=== PATIENT | female | born 1985 | race Caucasian/White ===

== ENCOUNTER 2023-04-15 06:49 | Emergency (ER) | payer OTHER, SELFPAY ==
[2023-04-15 06:52] VITALS: BP 206/93; PULSE 88; RESP 18; TEMP 36.7; O2SAT 98; BMI 37.6
--- NOTE | 2023-04-15 07:27 | ED.GENADULT ---
HPI - General Adult General Chief complaint: General Medical Stated complaint: l sided facial numbness pain Time Seen by Provider: 04/15/23 07:02 Source: patient Mode of arrival: ambulatory Limitations: no limitations History of Present Illness HPI narrative: 37 yo female with PMH of back pain here with c/o 1. L sided facial pain, swelling, sharp shooting pains and pain in left cheek. Hurts to open mouth. no trauma, travel, dental procedure. 2. LMP end of February had her IUD removed has had 4 tests at home. She has tried tylenol and OTC orajel, ear drops and cannot tolerate the pain it is making her blood pressure high. She has not seen OBGYN as she has had recent miscarriage and doesn't know want to go unless this one holds. NO OB complaints MD complaint: L facial pain Onset (ago): day(s) (Saturday) Radiation: non-radiation Severity: severe Quality: stabbing and aching Pain Consistency: intermittent Relieving factors: none Exacerbating factors: other (chewing) Associated symptoms: denies other symptoms Treatments prior to arrival: none Related Data Previous Rx's Medication Instructions Recorded amoxicillin 500 mg capsule 500 mg PO TID 7 days #21 caps 04/15/23 hydrocodone 5 mg-acetaminophen 325 1 tab PO Q6H PRN pain #14 tabs 04/15/23 mg tablet Allergies Allergy/AdvReac Type Severity Reaction Status Date / Time vancomycin AdvReac Redness of Verified 04/15/23 06:52 Skin Review of Systems Review of Systems: Constitutional : No Fever, No Chills, No Fatigue ENT/Mouth : No sore throat, No Rhinorrhea, pos facial pain, pos ear pain Eyes: No Eye Pain, No Swelling, No Redness Cardiovascular : No Chest Pain, No SOB, No Dyspnea on Exertion Respiratory : No Cough, No Sputum Gastrointestinal : No Nausea, No Vomiting, No Diarrhea, No abdominal Pain Genitourinary : No Dysuria, No Urinary Frequency, No Hematuria, Musculoskeletal : No joint pain, No Myalgias, No Joint Swelling Skin : No Skin Lesions, No rash Neuro : No Weakness, No Numbness, No Dizziness, no Headache Psych : No Anxiety/Panic, No Depression All other systems reviewed and are negative [facility] Past Medical History Attestation statement: The following information was validated with the patient. Medical History (Updated 04/15/23 @ 07:50 by Desire Montoya DO) Miscarriage Back pain Social History Social History (Updated 04/15/23 @ 07:41 by Desire Montoya DO) Patient Tobacco Use Status: Never used Tobacco Smoked in Last 30 Days: No Use of substances other than those prescribed or required for medical reasons: No Advance Directives: No Advance Directives Information Provided: No Patient : Yes Physical Exam ED Vital Signs: Vital Signs - 24 hr 04/15/23 06:52 04/15/23 07:35 Temperature 98.0 F 98.3 F Pulse Rate 88 92 Respiratory Rate 18 16 Blood Pressure 206/93 H 152/98 H Pulse Oximetry 98 97 Oxygen Delivery Method Room Air Room Air BMI result Body Mass Index 37.6 Appearance: Alert. Oriented X3. No acute distress. Eyes: Pupils equal, round and reactive to light. EOMi no bulging no pain ENT: Pharynx normal. Teeth normal no abscess on gingiva, no trismus, L parotid gland mildly swollen and ttp no purulence noted/no mass or stone felt, L TM normal, no mastoid ttp Neck: Normal inspection. Neck supple. normal no submandibular swelling CVS: Normal heart rate and rhythm. Pulses normal. Respiratory: No respiratory distress. Breath sounds normal. Abdomen: Soft and nontender. Skin: Skin warm and dry. Normal skin color. Normal skin turgor. Extremities: No lower extremity edema. No calf ttp Neuro: Oriented X 3. No motor deficit. No sensory deficit. Medications Administered Discontinued Medications Generic Name Dose Route Start Last Admin Trade Name Freq PRN Reason Stop Dose Admin Amoxicillin 500 mg 04/15/23 07:17 04/15/23 07:34 Amoxicillin 500 Mg Capsule PO 04/15/23 07:18 500 mg ONCE ONE Administration Oxycodone HCl 5 mg 04/15/23 07:17 04/15/23 07:33 Oxycodone Hcl Immed Release 5 Mg Tablet PO 04/15/23 07:18 5 mg ONCE ONE Administration Medical Decision Making Medical Decision Making MDM Narrative: 37 yo female with PMH of back pain here with sharp shooting pains on L side of face without any other neurologic findings or deficits - she has normal L TM and mastoid she has no sublingual or submandibular swelling. She has signs of inflammed parotid gland but no purulence expressed and no sig swelling or overlying cellulitis, neck exam is normal. At this time could be trigeminal neuralgia no hx of this and no risk factors and possibly sialoadenitis - will start on amoxicillin and short course pain medications. could also be worsening [place]. She will get labs, UA and HCG - BP is elevated likely due to pain. Not in pre-eclampsia window based off LMP is 5 to 7 weeks Differential Diagnosis Differential Diagnoses: The differential diagnosis associated with the presentation includes TMJ syndrome, trigeminal neuralgia, parotitis, AOM Admission/Observation Consideration of admission/observation: Escalation of care including admission/observation considered Lab Data [facility] Lab Attestation statement: I reviewed the patient's lab results. 04/15/23 08:19 04/15/23 08:19 Labs: Lab Results 04/15/23 04/15/23 Range/Units 07:36 08:19 WBC 5.9 (4.8-10.8) X10*3/uL RBC 4.26 (4.20-5.50) X10*6/uL Hgb 10.2 L (12.0-16.0) g/dl Hct 32.2 L (37.0-47.0) % MCV 75.6 L (80.0-98.0) fL MCH 23.9 L (27.0-33.0) pg MCHC 31.7 (31.0-35.0) g/dl RDW 15.8 (11.0-16.0) % Plt Count 275 (160-400) X10*3/uL MPV 9.3 L (9.4-12.3) fL Immature Gran % (Auto) 0.3 (0.0-0.4) % Neut % (Auto) 65.2 (45-73) % Lymph % (Auto) 27.1 (20-40) % [place] % (Auto) 5.5 (2-11) % Eos % (Auto) 1.7 (0-4) % Baso % (Auto) 0.2 (0-2) % Lymph # (Auto) 1.6 (1.2-4.9) X10*3/uL [place] # (Auto) 0.3 (0.1-1.2) X10*3/uL Eos # (Auto) 0.1 (0.0-0.4) X10*3/uL Baso # (Auto) 0.0 (0.0-0.2) X10*3/uL Abs Immat Gran (auto) 0.02 (0.00-0.03) X10*3/uL Absolute Neuts (auto) 3.8 (2.0-8.3) x10*3/uL Absolute Nucleated RBC 0.000 (0.0-0.012) X10*3/uL Nucleated RBC % (auto) 0.0 (0.0-0.2) /100WBC Sodium 141 (135-145) mmol/L Potassium 3.7 (3.3-5.1) mmol/L Chloride 110 H (96-108) mmol/L Carbon Dioxide 23 (22-29) mmol/L Anion Gap 12 (12-20) BUN 10 (9-16) mg/dL Creatinine 0.71 (0.5-1.4) mg/dL Estim Creat Clear Calc 137.9 Estimated GFR > 60 Random Glucose 107 (60-115) mg/dL Calcium 9.4 (8.4-10.2) mg/dL Magnesium 2.0 (1.6-2.6) mg/dL Total Bilirubin 0.5 (0.0-1.0) mg/dL Direct Bilirubin 0.2 (0.0-0.5) mg/dL AST 15 (5-31) U/L ALT 11 (0-31) U/L Alkaline Phosphatase 165 H (39-117) U/L Total Protein 7.3 (6.5-8.0) g/dL Albumin 4.0 (3.5-5.0) g/dL Beta HCG, Quant 281 mIU/mL Urine Color Yellow Urine Appearance Clear Urine pH 7.0 (5.0-9.0) Ur Specific [place] <= 1.005 (1.005-1.025) Urine Protein Negative (Neg-Trace) mg/dL Urine Glucose (UA) Negative (Negative) mg/dL Urine Ketones Negative (Negative) mg/dL Urine Blood Negative (Negative) Urine Nitrite Negative (Negative) Ur Leukocyte Esterase Negative (Negative) Prescription Management I considered prescription management with: Pain Medication and Antibiotic Discharge Plan Discharge Clinical Impression: Sialadenitis Patient Disposition: Home, Self-Care Instructions: Sialoadenitis (ED) Additional Instructions: return for worsening pain, increased swelling, inability to open jaw or swallow take a probiotic while on antibiotic this could be trigeminal neuralgia which is difficult to manage and control in please follow up with your doctor you had slight anemia at 10.2 your blood pressure was elevated this needs to be monitored by an OBGYN you had no protein in your urine your hcg is only 218 I would repeat this in 2 days with your doctor to make sure there is an appropriate rise Prescriptions: New amoxicillin 500 mg capsule 500 mg PO TID 7 Days Qty: 21 0RF hydrocodone-acetaminophen 5-325 mg tablet 1 tab PO Q6H PRN (Reason: pain) Qty: 14 0RF Rx Instructions: partial fill okay; Partial Fill upon patient request. Stand Alone Forms: Work/School Release
[2023-04-15] MEDS: oxyCODONE HCl Immed Release 5 MG TABLET PO (07:33)
[2023-04-15] MEDS: Amoxicillin 500 MG CAPSULE PO (07:34)
[2023-04-15 07:35] VITALS: BP 152/98; PULSE 92; RESP 16; TEMP 36.8; O2SAT 97
--- NOTE | 2023-04-15 07:39 | PC.NURSE ---
a&ox4, vss and up to date aside from being slightly hypertensive. provider aware. pt presents to the ED d/t left sided ear/jaw pain since 04/12. pt verbalizes constant pain and intermittent episodes of numbness/tingling. denies fever/chills. pt verbalizes slightly swelling to the face. tender to the touch. pt medicated per provider order. urine obtained/sent to lab. airway patent. no sob/wob noted. respirations even and unlabored. call velarde placed within reach.
[2023-04-15 07:43] LABS: Appearance Urine Clear; Color Urine Yellow; Glucose Urine UA Negative (Negative); Leukocyte Esterase Urine Negative (Negative); Nitrite Urine Negative (Negative); Specific Gravity - Urine <= 1.005 (1.005-1.025); Urine Blood Negative (Negative); Urine Ketones Negative (Negative); Urine Protein Negative (Neg-Trace)
--- NOTE | 2023-04-15 08:22 | PC.NURSE ---
labs obtained/sent by [facility].
[2023-04-15 08:23] LABS: MANUAL DIFF FLAG NO
[2023-04-15 08:25] LABS: Basophils Percent Auto 0.2 % (0-2); Eosinophils Absolute Auto 0.1 X10*3/uL (0.0-0.4); Eosinophils Percent Auto 1.7 % (0-4); Hematocrit 32.2 % (37.0-47.0); Hemoglobin 10.2 g/dl (12.0-16.0); Imm Gran Abs Auto 0.02 X10*3/uL (0.00-0.03); Imm Gran Pct Auto 0.3 % (0.0-0.4); Lymphocytes Absolute Auto 1.6 X10*3/uL (1.2-4.9); Lymphocytes Percent Auto 27.1 % (20-40); Mean Corpuscular HGB Conc 31.7 g/dl (31.0-35.0); Mean Corpuscular Hemoglobin 23.9 pg (27.0-33.0); Mean Corpuscular Volume 75.6 fL (80.0-98.0); Mean Platelet Volume 9.3 fL (9.4-12.3); Monocytes Absolute Auto 0.3 X10*3/uL (0.1-1.2); Monocytes Percent Auto 5.5 % (2-11); Neutrophils Absolute Auto 3.8 x10*3/uL (2.0-8.3); Neutrophils Percent Auto 65.2 % (45-73); Platelet Count 275 X10*3/uL (160-400); Red Blood Count 4.26 X10*6/uL (4.20-5.50); Red Cell Distribution Width 15.8 % (11.0-16.0); White Blood Count 5.9 X10*3/uL (4.8-10.8)
[2023-04-15 08:46] LABS: Alanine Aminotransferase 11 U/L (0-31); Alkaline Phosphatase 165 U/L (39-117); Anion Gap 12 (12-20); Aspartate Amino Transferase 15 U/L (5-31); Bilirubin Direct 0.2 mg/dL (0.0-0.5); Bilirubin Total 0.5 mg/dL (0.0-1.0); Blood Urea Nitrogen 10 mg/dL (9-16); Calcium 9.4 mg/dL (8.4-10.2); Carbon Dioxide 23 mmol/L (22-29); Chloride 110 mmol/L (96-108); Creatinine Clr Calc Pharmacy 137.9; Estimated Glomerular Filt Rate > 60; Glucose Random 107 mg/dL (60-115); HCG Quantitative 281 mIU/mL; Potassium 3.7 mmol/L (3.3-5.1); Sodium 141 mmol/L (135-145); Total Protein 7.3 g/dL (6.5-8.0)
== END 2023-04-15 09:02 | disposition home or self-care (01) ==
PROVIDERS: Emergency Provider Emergency Medicine
DX: K11.20 Sialoadenitis, unspecified (principal); D64.9 Anemia, unspecified; K08.89 Other specified disorders of teeth and supporting structures
CPT/HCPCS: 36415; 80048; 80076; 81003; 83735; 84702; 85025; 99283; 99284